=== PATIENT | male | born 1970 | race Caucasian/White ===

== ENCOUNTER 2016-08-20 08:12 | Emergency (ER) | payer BC ==
[2016-08-20 08:28] VITALS: BP 135/85
--- NOTE | 2016-08-20 08:33 | UC ---
FLU HPI - HPI Summary HPI Summary: cough, congestion, fatigue, muscle aches, chills x 4 days. No documented fever. No sputum. No chest pain. Did not have a flu shot this year. - History of Current Complaint Chief Complaint: UCRespiratory Stated Complaint: FLU SYMPTOMS Time Seen by Provider: 08/20/16 08:22 Hx Obtained From: Patient, Family/Quality Assurance Monitor - Onset/Duration: Sudden Onset, Lasting Days, Still Present Severity Currently: Moderate Severity Initially: Severe Pain Intensity: 2 Pain Scale Used: 0-10 Numeric Associated Signs & Symptoms: Positive: Myalgia, Cough, Nasal Congestion, Headache Related Hx: Smoking - Allergy/Home Medications Allergies/Adverse Reactions: Allergies Allergy/AdvReac Type Severity Reaction Status Date / Time Penicillins [PCN] Allergy Rash Verified 08/20/16 08:24 PMH/Surg Hx/FS Hx/Imm Hx Previously Healthy: Yes - Surgical History Surgical History: Yes Surgery Procedure, Year, and Place: appy, t&a; right knee bursectomy - Family History Known Family History: Negative: Cardiac Disease Family History: no known cardio vascular issues in patient family - Social History Occupation: Employed Full-time Alcohol Use: Occasionally Substance Use Type: None Smoking Status (MU): Light Every Day Tobacco Smoker Type: Cigarettes Amount Used/How Often: 1/2 PPD Have You Smoked in the Last Year: Yes Household Exposure Type: Cigarettes Review of Systems Constitutional: Chills, Fatigue Skin: Negative Eyes: Negative ENT: Negative Respiratory: Cough Cardiovascular: Negative Gastrointestinal: Negative Genitourinary: Negative Motor: Negative Neurovascular: Negative Musculoskeletal: Negative, Myalgia Neurological: Headache Psychological: Negative All Other Systems Reviewed And Are Negative: Yes Physical Exam Triage Information Reviewed: Yes Appearance: No Pain Distress, Well-Nourished, Ill-Appearing Vital Signs: Initial Vital Signs Temp 97.5 F 08/20/16 08:16 Pulse 79 08/20/16 08:16 Resp 18 08/20/16 08:16 BP 135/85 08/20/16 08:16 Vital Signs Reviewed: Yes Eyes: Positive: Conjunctiva Clear ENT: Positive: Pharynx normal, TMs normal Neck: Positive: Supple, Nontender, No Lymphadenopathy Respiratory: Positive: Lungs clear, Normal breath sounds, No respiratory distress Cardiovascular: Positive: RRR, Pulses Normal, Brisk Capillary Refill Abdomen Description: Positive: Nontender, No Organomegaly, Soft. Negative: CVA Tenderness (R), CVA Tenderness (L), Distended, Guarding Bowel Sounds: Positive: Present Musculoskeletal: Positive: Strength Intact, ROM Intact Neurological: Positive: Alert, Muscle Tone Normal Psychological Exam: Normal Skin Exam: Normal Flu Course/Dx - Course Course Of Treatment: flu swab neg - Differential Dx/Diagnosis Differential Diagnosis/HQI/PQRI: Bronchitis, Influenza, Pneumonia, Upper Respiratory Infection Provider Diagnoses: viral syndrome Discharge - Discharge Plan Condition: Stable Disposition: HOME Prescriptions: Ibuprofen TAB* [Motrin TAB* 800 MG] 800 mg PO Q6H #30 tab Ondansetron ODT TAB* [Zofran Odt TAB*] 4 mg PO Q8H PRN #10 tab.odt PRN Reason: Vomiting Patient Education Materials: Viral Syndrome (ED) Forms: *Work Release Referrals: Non Staff,Doctor [Primary Care Provider] -
[2016-08-20] MEDS ORDERED: Ondansetron ODT TAB* 4 MG PO ONE (09:09)
[2016-08-20] MEDS ORDERED: Ibuprofen TAB* 600 MG PO ONE (09:09)
[2016-08-20] MEDS ORDERED: Ibuprofen TAB* 400 MG PO ONE (09:11)
== END 2016-08-20 09:25 | disposition home or self-care (01) ==
LOC: UCCORT 08:12
DX: B34.9 Viral infection, unspecified (principal); Z88.0 Allergy status to penicillin; F17.210 Nicotine dependence, cigarettes, uncomplicated
CPT/HCPCS: 87502; 99212; A9270-GY; G0463

== ENCOUNTER 2016-10-29 12:01 | Emergency (ER) | payer BC ==
[2016-10-29 12:42] VITALS: BP 148/67
--- NOTE | 2016-10-29 13:51 | UC ---
Lower Extremity/Ankle HPI - HPI Summary HPI Summary: LEFT GREAT AND SECOND TOE PAIN, REDNESS AND MILD SWELLING. HISTORY OF OCCASIONAL GOUT FLARE UPS. WAS DROPPED FROM PRIMARY CARE LAST YEAR. HAD INDOMETHACIN LEFT OVER FROM VISITS IN THE PAST, BUT HAS RUN OUT SINCE LAST GOUT FLARE UP. LAST TWO DAYS HAS HAD ANOTHER FLARE UP. HAS BEEN TAKING NAPROXEN, BUT GOUT STILL PERSISTS. EATS FREQUENT RED MEAT. NO TRAUMA, OR FEVER. - History of Current Complaint Chief Complaint: UCLowerExtremity Stated Complaint: LEFT FOOT COMPLAINT Time Seen by Provider: 10/29/16 13:18 Hx Obtained From: Patient Onset/Duration: Sudden Onset, Lasting Days, Still Present Severity Initially: Moderate Severity Currently: Moderate Aggravating Factor(s): Standing, Ambulation Alleviating Factor(s): Rest, Elevation Able to Bear Weight: Yes - Risk Factors Gout Risk Factors: Negative DVT Risk Factors: Negative Septic Arthritis Risk Factor: Negative - Allergies/Home Medications Allergies/Adverse Reactions: Allergies Allergy/AdvReac Type Severity Reaction Status Date / Time Penicillins [PCN] Allergy Rash Verified 10/29/16 12:42 Home Medications: Home Medications Ibuprofen TAB* [Motrin TAB* 800 MG] 800 mg PO Q6H PRN 10/29/16 [History Confirmed 10/29/16] Naproxen TAB* [Naprosyn TAB*] 250 mg PO Q8H PRN 10/29/16 [History Confirmed ] PMH/Surg Hx/FS Hx/Imm Hx Previously Healthy: Yes - Surgical History Surgical History: Yes Surgery Procedure, Year, and Place: appy, t&a, bursectomy - Family History Known Family History: Positive: Unknown Negative: Cardiac Disease Family History: no known cardio vascular issues in patient family - Social History Occupation: Employed Full-time Lives: With Family Alcohol Use: Weekly Substance Use Type: None Smoking Status (MU): Light Every Day Tobacco Smoker Type: Cigarettes Amount Used/How Often: 1/2 PPD Have You Smoked in the Last Year: Yes Household Exposure Type: Cigarettes Cessation Counseling: Patient Advised to Stop Review of Systems Constitutional: Negative Skin: Rash - LEFT GREAT TOE AND LEFT SECOND TOE, REDNESS TENDERNESS Eyes: Negative ENT: Negative Respiratory: Negative Cardiovascular: Negative Gastrointestinal: Negative Genitourinary: Negative Motor: Negative Neurovascular: Negative Musculoskeletal: Arthralgia - LEFT GREAT TOE AND LEFT SECOND TOE Neurological: Negative Psychological: Negative All Other Systems Reviewed And Are Negative: Yes Physical Exam Triage Information Reviewed: Yes Appearance: Well-Appearing, Well-Nourished, Pain Distress - MILD Vital Signs: Initial Vital Signs Temp 97.1 F 10/29/16 12:37 Pulse 71 10/29/16 12:37 Resp 14 10/29/16 12:37 BP 148/67 10/29/16 12:37 Pulse Ox 100 10/29/16 12:37 Vital Signs Reviewed: Yes Eye Exam: Normal ENT Exam: Normal ENT: Positive: Normal ENT inspection, Hearing grossly normal, Pharynx normal, TMs normal Dental Exam: Normal Neck exam: Normal Neck: Positive: Supple, Nontender, No Lymphadenopathy Respiratory Exam: Normal Respiratory: Positive: Chest non-tender, Lungs clear, Normal breath sounds, No respiratory distress, No accessory muscle use Cardiovascular Exam: Normal Cardiovascular: Positive: RRR, No Murmur Abdominal Exam: Normal Abdomen Description: Positive: Nontender, No Organomegaly Musculoskeletal: Positive: ROM Limited @ - LEFT 2ND AND 1ST TOE, Edema @ - LEFT 2ND AND 1ST TOE Neurological Exam: Normal Psychological Exam: Normal Psychological: Positive: Normal Response To Family Skin: Positive: rashes - ERRETHEMA LEFT 2ND AND 1ST TOE Lower Extremity Course/Dx - Differential Dx/Diagnosis Differential Diagnosis/HQI/PQRI: Cellulitis, Fracture (Closed), Gout, Sprain Provider Diagnoses: ACUTE GOUT LEFT SECOND AND FIRST TOES Discharge - Discharge Plan Condition: Stable Disposition: HOME Prescriptions: Colchicine [Mitigare] 0.6 mg PO SEE INSTRUCTIONS #3 cap Indomethacin CAP* [Indocin CAP*] 50 mg PO TID PRN #15 cap PRN Reason: Pain Patient Education Materials: Low Purine Diet (ED), Gout (ED) Referrals: [facility] [place] PHYSICIAN REFERRAL [Outside] Non Staff,Doctor [Primary Care Provider] -
== END 2016-10-29 13:58 | disposition home or self-care (01) ==
LOC: UCCORT 12:01
DX: M10.072 Idiopathic gout, left ankle and foot (principal); R03.0 Elevated blood-pressure reading, without diagnosis of hypertension; Z88.0 Allergy status to penicillin; F17.210 Nicotine dependence, cigarettes, uncomplicated
CPT/HCPCS: 99212; G0463

== ENCOUNTER 2017-05-04 17:43 | Emergency (ER) | payer BC ==
--- NOTE | 2017-05-04 18:08 | UC ---
Throat Pain/Nasal Yunier HPI - HPI Summary HPI Summary: 46 y/o male presents to the urgent care c/o sore throat with pain with swallowing for the past 3 days. Pt states mild subjective fever with nasal congestion at home. Pt has been taking Tylenol, Ibuprofen interchangeably, and Dayquil w/o any relief of symptoms. Pt states he has HX of Mononucleosis in 2006. Pt denies cough, SOB, chest pain, abdominal pain, N/V/D - History of Current Complaint Stated Complaint: SORE THROAT Time Seen by Provider: 05/04/17 18:05 Hx Obtained From: Patient Onset/Duration: Gradual Onset, Lasting Days - 3 days, Still Present Severity: Moderate Pain Intensity: 6 Pain Scale Used: 0-10 Numeric Cough: None Associated Signs & Symptoms: Positive: Dysphagia, Fever - subjective. Negative : Wheezing, Sinus Discomfort, Nasal Discharge Related History: Seasonal Allergies - Epiglottits Risk Factors Epiglottis Risk Factors: Negative - Allergies/Home Medications Allergies/Adverse Reactions: Allergies Allergy/AdvReac Type Severity Reaction Status Date / Time Penicillins [PCN] Allergy Rash Verified 05/04/17 18:08 Home Medications: Home Medications [id number] [Vicks Dayquil/Nyquil Cold] 1 mis PO DAILY [History Confirmed 05/04/17] PMH/Surg Hx/FS Hx/Imm Hx Previously Healthy: Yes Cardiovascular History: Hypertension - diet control - Surgical History Surgical History: Yes Surgery Procedure, Year, and Place: appy, t&a, bursectomy - Family History Known Family History: Positive: Hypertension Negative: Cardiac Disease Family History: no known cardio vascular issues in patient family - Social History Occupation: Employed Full-time Lives: With Family Alcohol Use: Weekly Substance Use Type: None Smoking Status (MU): Light Every Day Tobacco Smoker Type: Cigarettes Amount Used/How Often: 1/2 PPD Have You Smoked in the Last Year: Yes Household Exposure Type: Cigarettes Review of Systems Constitutional: Fever - subjective at home Skin: Negative Eyes: Negative ENT: Sore Throat Respiratory: Negative Cardiovascular: Negative Gastrointestinal: Negative Genitourinary: Negative Motor: Negative Neurovascular: Negative Musculoskeletal: Negative Neurological: Negative Psychological: Negative Is Patient Immunocompromised?: No All Other Systems Reviewed And Are Negative: Yes Physical Exam Triage Information Reviewed: Yes - Additional Comments VITAL SIGNS: Reviewed. GENERAL: Patient is a well developed and nourished who is sitting comfortable in the examining table. Patient is not in any acute respiratory distress. HEAD AND FACE: No signs of trauma. No ecchymosis, hematomas or skull depressions. No sinus tenderness. EYES: PERRLA, EOMI x 2, No injected conjunctiva, no nystagmus. No photophobia. EARS: Hearing grossly intact. Ear canals and tympanic membranes are within normal limits. MOUTH: Positive pharynx with erythema, no exudates, palatal petechiae. no tonsils. Uvula in midline. NECK: Supple, trachea is midline, Positive anterior cervical lymphadenopathy, no JVD, no carotid bruit, no c-spine tenderness, neck with full ROM. CHEST: Symmetric, no tenderness at palpation LUNGS: Clear to auscultation bilaterally. No wheezing or crackles. CVS: Regular rate and rhythm, S1 and S2 present, no murmurs or gallops appreciated. ABDOMEN: Soft, non-tender. No signs of distention. No rebound no guarding, and no masses palpated. Bowel sounds are normal. EXTREMITIES: FROM in all major joints, no edema, no cyanosis or clubbing. NEURO: Alert and oriented x 3. No acute neurological deficits. Speech is normal and follows commands. SKIN: Dry and warm Throat Pain/Nasal Course/Dx - Course Course Of Treatment: 46 y/o male presents to the urgent care c/o sore throat with pain with swallowing for the past 3 days. Pt states mild subjective fever with nasal congestion at home. Pt has been taking Tylenol, Ibuprofen interchangeably, and Dayquil w/o any relief of symptoms. Pt states he has HX of Mononucleosis in 2005. Pt denies cough, SOB, chest pain, abdominal pain, N/V/D. Hx obtained. Rapid Strep ordered, result: negative. Viral Pharyngitis. Pt Rx ibuprofen PO tp alleviate pain and swelling. Pt advised If symptoms do not improve or worsen to return to the urgent care or f/u with your PCP for further evaluation and treatment. Pt BP elevated today. Pt advised decrease salt in his diet, monitor your BP, if it continues to be elevated to f/u with his PCP for further management. Pt understood and agreed with plan of care. Left the clinic ambulating. - Differential Dx/Diagnosis Differential Diagnosis/HQI/PQRI: Influenza, Laryngitis, Mononucleosis, Peritonsillar Abscess, Pharyngitis, Tonsillitis, URI Provider Diagnoses: 1- Acute Viral pharyngitis. 2- Uncontrolled HTN Discharge - Discharge Plan Condition: Stable Disposition: HOME Prescriptions: Ibuprofen TAB* [Motrin TAB* 800 MG] 800 mg PO Q6H #30 tab Patient Education Materials: Pharyngitis (ED), Low Sodium Diet (ED) Referrals: [facility] [place] PHYSICIAN REFERRAL [Outside] - If Needed Non Staff,Doctor [Primary Care Provider] - Additional Instructions: 1-Please take ibuprofen PO q6-8hrs prn as instructed after meals to alleviate pain and swelling. Eat well, rest, increase fluid intake, 2-If symptoms do not improve or worsen please return to the urgent care or f/u with your PCP for further evaluation and treatment. 3- If you develop severe fever, chills, shortness of breath please go immediately to the ER for further treatment. 4- Your BP today is elevated, please decrease salt in your diet, monitor your BP , if it continues to be elevated please f/u with your PCP for further management.
[2017-05-04 18:09] VITALS: BP 151/77
== END 2017-05-04 19:37 | disposition home or self-care (01) ==
LOC: UCCORT 17:43
DX: J02.9 Acute pharyngitis, unspecified (principal); I10 Essential (primary) hypertension; Z88.0 Allergy status to penicillin; F17.210 Nicotine dependence, cigarettes, uncomplicated
CPT/HCPCS: 87651; 99212; G0463

== ENCOUNTER 2019-01-25 12:02 | Emergency (ER) | payer BC ==
[2019-01-25 12:33] VITALS: BP 134/66
--- NOTE | 2019-01-25 13:19 | UC ---
Respiratory Complaint HPI - HPI Summary HPI Summary: cough x 2 days cough is dry , worse with deep breathing, better with rest + chest and nasal congestion , no wheezing, no sob , no sore throat, no fever, + chills - History of Current Complaint Chief Complaint: UCRespiratory Stated Complaint: COUGH Time Seen by Provider: 01/25/19 13:02 Hx Obtained From: Patient Onset/Duration: Gradual Onset, Lasting Days - 2, Still Present Timing: Constant Severity Initially: Moderate Severity Currently: Moderate Pain Intensity: 3 Character: Cough: Nonproductive Aggravating Factors: Exertion, Deep Breaths Alleviating Factors: Nothing Associated Signs And Symptoms: Positive: Chills, URI, Nasal Congestion. Negative: Dyspnea, Fever, Pleuritic Chest Pain, Wheezing, Hemoptysis, Dizziness , Calf Pain, Calf Swelling, Edema, Hoarseness, Sinus Discomfort - Allergies/Home Medications Allergies/Adverse Reactions: Allergies Allergy/AdvReac Type Severity Reaction Status Date / Time Penicillins Allergy Rash Verified 01/25/19 12:26 Home Medications: Home Medications Ibuprofen TAB* [Motrin TAB* 800 MG] 600 mg PO BID PRN 01/25/19 [History Confirmed 01/25/19] PMH/Surg Hx/FS Hx/Imm Hx Previously Healthy: Yes - Surgical History Surgical History: Yes Surgery Procedure, Year, and Place: appy, t&a, right knee bursectomy - Family History Known Family History: Positive: Unknown, Hypertension Negative: Cardiac Disease Family History: no known cardio vascular issues in patient family - Social History Alcohol Use: Weekly Alcohol Amount: 10-12 Substance Use Type: None Smoking Status (MU): Light Every Day Tobacco Smoker Type: Cigarettes Amount Used/How Often: 1/2 PPD Have You Smoked in the Last Year: Yes Household Exposure Type: Cigarettes Review of Systems All Other Systems Reviewed And Are Negative: Yes Constitutional: Positive: Chills, Fatigue Skin: Positive: Negative Eyes: Positive: Negative ENT: Positive: Nasal Discharge Respiratory: Positive: Cough Cardiovascular: Positive: Negative Gastrointestinal: Positive: Negative Is Patient Immunocompromised?: No Physical Exam Triage Information Reviewed: Yes Appearance: Well-Appearing, No Pain Distress, Well-Nourished Vital Signs: Initial Vital Signs Temp 97.6 F 01/25/19 12:28 Pulse 75 01/25/19 12:28 Resp 16 01/25/19 12:28 BP 134/66 01/25/19 12:28 Pulse Ox 98 01/25/19 12:28 Vital Signs Reviewed: Yes Eye Exam: Normal Eyes: Positive: Conjunctiva Clear ENT: Positive: Normal ENT inspection, Hearing grossly normal, Pharynx normal Neck: Positive: Supple, Nontender, No Lymphadenopathy Respiratory: Positive: Chest non-tender, Lungs clear, Normal breath sounds Cardiovascular: Positive: RRR, No Murmur, Pulses Normal Abdominal Exam: Normal Abdomen Description: Positive: Nontender, Soft. Negative: CVA Tenderness (R), CVA Tenderness (L), Distended, Guarding Skin Exam: Normal Respiratory Course/Dx - Differential Dx/Diagnosis Provider Diagnosis: Viral bronchitis Discharge - Sign-Out/Discharge Documenting (check all that apply): Patient Departure All imaging exams completed and their final reports reviewed: No Studies - Discharge Plan Condition: Stable Disposition: HOME Prescriptions: Codeine Phosphate/Guaifenesin [Cheratussin AC] 10 ml PO Q8H #120 ml MDD 30 ml Patient Education Materials: Acute Bronchitis (ED) Referrals: Amanuel Munoz MD [Primary Care Provider] - 5 Days - Billing Disposition and Condition Condition: STABLE Disposition: Home
== END 2019-01-25 13:19 | disposition home or self-care (01) ==
LOC: UCCORT 12:02
DX: J20.8 Acute bronchitis due to other specified organisms (principal); Z88.0 Allergy status to penicillin; F17.210 Nicotine dependence, cigarettes, uncomplicated
CPT/HCPCS: 99212; G0463

== ENCOUNTER 2019-08-22 07:16 | Emergency (ER) | payer BC ==
[2019-08-22 07:27] VITALS: BP 144/77
[2019-08-22] MEDS ORDERED: HYDROcodone/ACETAMIN 5-325 MG* 1 TAB PO ONE (07:43)
--- NOTE | 2019-08-22 07:43 | UC ---
Shoulder Pain HPI - HPI Summary HPI Summary: 49 yo male with the onset of left shoulder pain this AM woke to alarm clock at 5 AM sat up and about 30 sec lateral had severe left shoulder pain Pain worse if up right (10/10) Pain relieved if supine with left arm resting on head No LATHAM No CP no SOB - History of Current Complaint Chief Complaint: UCUpperExtremity Stated Complaint: LEFT ARM PAIN Time Seen by Provider: 08/22/19 07:34 Hx Obtained From: Patient Onset/Duration: Sudden Onset, Lasting Hours Timing: Constant Severity Initially: Severe Severity Currently: Mild Location Of Pain: Is Diffuse Pain Intensity: 3 Pain Scale Used: 0-10 Numeric Character: Aching, Throbbing, Spasmodic Aggravating Factor(s): Other - positional - see HPI Alleviating Factor(s): Elevation Associated Signs And Symptoms: Positive: Numbness/Tingling - intermittently to left hand Related History: Dominant Hand Right, Dominant Hand Left Torso: 1 - pain 2 - pain - Allergies/Home Medications Allergies/Adverse Reactions: Allergies Allergy/AdvReac Type Severity Reaction Status Date / Time Penicillins Allergy Rash Verified 08/22/19 07:24 Home Medications: Home Medications Ibuprofen TAB* [Advil TAB*] 800 mg PO Q8H PRN 08/22/19 [History Confirmed ] PMH/Surg Hx/FS Hx/Imm Hx Previously Healthy: Yes Cardiovascular History: Other Other Cardiovascular History: myocarditis - Surgical History Surgical History: Yes Surgery Procedure, Year, and Place: Right Knee Bursa, Appendectomy, T&A - Family History Known Family History: Positive: Hypertension Negative: Cardiac Disease Family History: no known cardio vascular issues in patient family - Social History Alcohol Use: Weekly Alcohol Amount: 10-12 Substance Use Type: None Smoking Status (MU): Heavy Every Day Tobacco Smoker Type: Cigarettes Amount Used/How Often: 1/2 PPD Length of Time of Smoking/Using Tobacco: Since Age 21 Have You Smoked in the Last Year: Yes Household Exposure Type: Cigarettes Review of Systems All Other Systems Reviewed And Are Negative: Yes Constitutional: Positive: Negative Skin: Positive: Negative Eyes: Positive: Negative ENT: Positive: Negative Respiratory: Positive: Negative Cardiovascular: Positive: Negative Gastrointestinal: Positive: Negative Genitourinary: Positive: Negative Motor: Positive: Negative Neurovascular: Positive: Negative Musculoskeletal: Positive: Arthralgia - left shoulder Neurological: Positive: Negative Psychological: Positive: Negative Physical Exam Triage Information Reviewed: Yes Appearance: Well-Appearing, Well-Nourished, Pain Distress Vital Signs: Initial Vital Signs Temp 97.6 F 08/22/19 07:21 Pulse 63 08/22/19 07:21 Resp 16 08/22/19 07:21 BP 144/77 08/22/19 07:21 Pulse Ox 100 08/22/19 07:21 Vital Signs Reviewed: Yes Eyes: Positive: Conjunctiva Clear ENT: Positive: Hearing grossly normal. Negative: Nasal congestion, Nasal drainage, TMs normal, Muffled voice, Hoarse voice Neck: Positive: Supple, Nontender, No Lymphadenopathy, Other: - no carotid bruits Respiratory: Positive: Lungs clear, Normal breath sounds, No respiratory distress, No accessory muscle use Cardiovascular: Positive: RRR, No Murmur Abdomen Description: Positive: Nontender, No Organomegaly. Negative: CVA Tenderness (R), CVA Tenderness (L) Bowel Sounds: Positive: Present Male Genital Exam: Positive: Normal Genitalia Musculoskeletal: Positive: Other: - Left shoulder - nontender, full but painful ROM, pain with arm down, good pulses Neurological: Positive: Alert Psychological Exam: Normal Skin Exam: Normal Diagnostics - Radiology No standard instances Radiology Interpretation Completed By: Radiologist Summary of Radiographic Findings: IMPRESSION: Varying degrees of multilevel spondylosis with degenerative disc disease and facet arthropathy in the mid cervical spine as above. IMPRESSION: 1. NO FRACTURE IDENTIFIED. 2. MILD ACROMIOCLAVICULAR OSTEOARTHROPATHY. Re-Evaluation - Re-Evaluation First Eval Re-Evaluation Time: 09:53 Change: Unchanged - Still with significant pain with arm lowered. Mild pain when resting above head. Good radial pulse despite any change in position Shoulder Course/Dx - Course Course Of Treatment: will transfer to [facility] for further evulation ? TOS vs other - Differential Dx/Diagnosis Provider Diagnosis: Left shoulder pain, Left arm numbness Discharge ED - Sign-Out/Discharge Documenting (check all that apply): Patient Departure All imaging exams completed and their final reports reviewed: Yes - Discharge Plan Condition: Stable Disposition: HOME Patient Education Materials: Shoulder Pain (ED) Referrals: Amanuel Munoz MD [Primary Care Provider] - Additional Instructions: I am unsure of the cause of your left shoulder pain It is very positional and I don't like the fact that you arm gets numb when you let your arm down I think this needs to get evaluated today to try to determine the cause I called the transfer center at [facility] and they are expecting you Be sure to take copies of XRays - Billing Disposition and Condition Condition: STABLE Disposition: Home
== END 2019-08-22 09:56 | disposition home or self-care (01) ==
LOC: UCCORT 07:16
DX: M25.512 Pain in left shoulder (principal); R20.0 Anesthesia of skin; M19.012 Primary osteoarthritis, left shoulder; F17.210 Nicotine dependence, cigarettes, uncomplicated; Z88.0 Allergy status to penicillin
CPT/HCPCS: 72050; 99212; G0463